=== PATIENT | female | born 1955 | race Caucasian/White ===

== ENCOUNTER → 2018-07-06 | Outpatient (CLI) | payer BC ==
[~2018-07-06] MED LIST: AUG500 PO; LEVO88TA42 PO; LUTE20CA11 PO; TRA50 PO; UBID30CA27 PO; VIT1CAPS33 PO; [UNRECOGNIZED DRUG - OTHER]; prednisone
== END ==
LOC: US 00:32
PROVIDERS: ATTEND Internal Medicine
DX: I07.9 Rheumatic tricuspid valve disease, unspecified (principal); Z87.74 Personal history of (corrected) congenital malformations of heart and circulatory system
CPT/HCPCS: 93306